=== PATIENT | female | born 1960 | race Caucasian/White ===

== ENCOUNTER 2020-01-04 13:06 | Outpatient (CLI) | payer OTHER, SELFPAY ==
--- NOTE | ~2020-01-04 | US_ITS ---
EXAMINATION: US soft tissue head and neck DATE: 01/04/2020 13:40 INDICATION: Cervical lymphadenopathy. TECHNIQUE: Multiple grayscale and Doppler ultrasound images of the neck were obtained. COMPARISON: None FINDINGS: There are normal lymph nodes in the patient's area of concern in right neck. IMPRESSION: 1. Normal lymph nodes in the patient's area of concern in right neck. Reviewed, dictated and finalized at location A. ICE EXECUTIVE DIRECTOR
== END 2020-01-04 13:07 | disposition home or self-care (01) ==
PROVIDERS: PCP Internal Medicine; Visit Provider Physician Assistant
DX: R59.1 Generalized enlarged lymph nodes (principal)
CPT/HCPCS: 76536

== ENCOUNTER → 2022-01-03 10:01 | Outpatient (CLI) | payer OTHER, SELFPAY ==
--- NOTE | ~2022-01-03 | US_ITS ---
US thyroid INDICATION: Nontoxic goiter TECHNIQUE: Real-time sonographic images of the thyroid gland were obtained. COMPARISON: No prior studies for comparison. FINDINGS: The right thyroid lobe measures 3.6 x 1.5 x 1 cm. The left thyroid lobe measures 3.5 x 1 x 0.8 cm. There is normal echotexture and echogenicity throughout the thyroid gland. No discrete nodul es identified. Normal vascular flow is present. IMPRESSION: 1. Normal thyroid without discrete nodule or abnormal vascularity. Reviewed, dictated and finalized at location B. TRONIC BENCH TECHNICIAN
== END ==
PROVIDERS: PCP Internal Medicine; Visit Provider Obstetrics & Gynecology
DX: E04.9 Nontoxic goiter, unspecified (principal)
CPT/HCPCS: 76536

== ENCOUNTER → 2022-03-12 12:33 | Outpatient (CLI) | payer OTHER, SELFPAY ==
--- NOTE | ~2022-03-12 | DEXA_ITS ---
Bone Density Report Name: SU JANE Age: 61 Sex: Female Ethnicity: White Date of : 1960 Indication: postmenopausal; screening for osteoporosis; height loss; inflammatory bowel disease; Referring Provider: TITUS MAJANO Study: Bone densitometry was performed. Exam Date: March 12, 2022 Accession number: [id number] Bone Density: Region BMD T-score Z-score Classification AP Spine (L1-L4) 1.160 1.0 2.5 Normal Femoral Neck (Left) 0.798 -0.5 0.8 Normal Total Hip (Left) 0.928 -0.1 0.9 Normal World Health Organization criteria for BMD impression classify patients as: Normal (T-score at or above -1.0), Osteopenia (T-score between -1.0 and -2.5), or Osteoporosis (T-score at or below -2.5). 10-year Fracture Risk: FRAX not reported because: All T-scores for Spine Total, Hip Total, Femoral Neck at or above -1.0 Previous Exams: Region Exam Age BMD T-score BMD Change BMD Change Date g/cm2 vs Baseline vs Previous AP Spine(L1-L4) 03/12/2022 61 1.160 1.0 -0.007 -0.007 05/26/2014 53 1.167 1.1 Total Hip(Left) 03/12/2022 61 0.928 -0.1 -0.108* -0.108* 05/26/2014 53 1.036 0.8 *Denotes significance at 95% confidence level, LSC for AP Spine = 0.022 g/cm2, LSC for Total Hip = 0.027 g/cm2 Clinical Information Provided by Patient: Has used the following medications: Vitamin D, Calcium, MTV, LEVOTHYROXINE Has the following medical conditions: Inflammatory bowel diseases Patient maximum height was 70.0 Menopause Age: 52 Drinks caffeinated beverages Onset of menses at age 13 Number of children 2 Impression: The patient has normal bone mass. The BMD for the Total Hip(Left) decreased, changing by -0.108 since the last DXA exam. Discussion: BONE DENSITY IS ABOVE THE MINIMUM DESIRABLE LEVEL AT ALL SKELETAL SITES TESTED. This patient?s bone mineral density is above the minimum desirable level (T-score -1.0 or better) at all sites measured. The patient should follow a healthful lifestyle (good nutrition with adequate calcium and vitamin D, and appropriate weight-bearing exercise). Follow-Up: Consider repeating this study in 3 to 4 years to reassess this patient's status, or sooner if there is some new clinical indication. Reported by: FELIX on 03/12/2022 1:07:00 PM. Reviewed, dictated and finalized at location Tamia NANCE
== END ==
PROVIDERS: PCP Internal Medicine; Visit Provider Obstetrics & Gynecology
DX: Z78.0 Asymptomatic menopausal state (principal)
CPT/HCPCS: 77080

== ENCOUNTER → 2022-04-08 16:17 | Outpatient (CLI) | payer OTHER, SELFPAY ==
--- NOTE | ~2022-04-08 | XR_ITS ---
EXAMINATION: XR foot LT min 3V DATE: 04/08/2022 16:34 INDICATION: Left foot pain. TECHNIQUE: 4 views of left foot were obtained. COMPARISON: None. FINDINGS: Bone alignment is normal. No acute fracture. There is mild osteoarthritis of first metatars ophalangeal joint and some of the midfoot joints. There is an enthesophyte at plantar aspect of calca audie tuberosity. IMPRESSION: 1. Mild polyarticular osteoarthritis. Reviewed, dictated and finalized at location A.
== END ==
PROVIDERS: PCP Internal Medicine; Visit Provider Internal Medicine
DX: M79.672 Pain in left foot (principal); M19.072 Primary osteoarthritis, left ankle and foot
CPT/HCPCS: 73630

== ENCOUNTER 2024-04-18 12:47 | Outpatient (CLI) | payer OTHER, SELFPAY | END 2024-04-18 12:48 | disposition home or self-care (01) | PROVIDERS: PCP Internal Medicine; Visit Provider Nurse Practitioner Family | DX: Z78.0 Asymptomatic menopausal state (principal) | CPT/HCPCS: 99199 ==

== ENCOUNTER 2024-04-20 08:24 | Outpatient (CLI) | payer OTHER, SELFPAY ==
--- NOTE | ~2024-04-20 | DEXA_ITS ---
? Bone Density Report? Name:? SU JANE Patient ID:??? [id number] Age:? 63 Sex:? Female Ethnicity:? White Date of : 1960 Indication: postmenopausal; screening for osteoporosis; height loss; inflammatory bowel disease; Referring Provider: PHOEBE YANG Study: Bone densitometry was performed. Exam Date: April 20, 2024 Accession number: [id number] Bone Density: Region? BMD??? T-score? Z-score?? Classification AP Spine(L1-L4)? 1.149??? 0.9?2.5? Normal Femoral Neck (Left)? 0.780?? -0.6? 0.8? Normal Total Hip (Left)? 0.918?? -0.2?0.9? Normal World Health Organization criteria for BMD impression classify patients as: Normal (T-score at or above -1.0), Osteopenia (T-score between -1.0 and -2.5), or Osteoporosis (T-score at or below -2.5). 10-year Fracture Risk: FRAX not reported because: ? All T-scores for Spine Total, Hip Total, Femoral Neck at or above -1.0 Clinical Information Provided by Patient: Has used the following medications: Vitamin D, Calcium Has the following medical conditions: Inflammatory bowel diseases Patient maximum height was 70 Menopause Age: 51 No regular weight bearing exercise Drinks caffeinated beverages Onset of menses at age 14 Number of children 2 Impression: The patient has normal bone mass. Discussion: BONE DENSITY IS ABOVE THE MINIMUM DESIRABLE LEVEL AT ALL SKELETAL SITES TESTED. This patient?s bone mineral density is above the minimum desirable level (T- score -1.0 or better) at all sites measured. The patient should follow a healthful lifestyle (good nutrition with adequate calcium and vitamin D, and appropriate weight-bearing exercise). Follow-Up: Consider repeating this study in 5 years or sooner if there is some new clinical indication. Reported by: Dr. Ger Moncada on 04/21/2024 10:43:00 AM. GOYO
== END 2024-04-20 08:25 | disposition home or self-care (01) ==
LOC: CHSIMG 08:25
PROVIDERS: PCP Internal Medicine; Visit Provider Nurse Practitioner Family
DX: Z78.0 Asymptomatic menopausal state (principal)
CPT/HCPCS: 77080